=== PATIENT | male | born 1960 | race Caucasian/White ===

== ENCOUNTER 2022-02-13 08:34 | Day surgery (SDC) | payer OTHER ==
[~2022-02-13] VITALS: Ht 172.7 cm; Wt 178.2 kg
[~2022-02-13 08:34] MED LIST: ACET500; ASCO500; Multiple Vitam1 EAC1 PO; Naprosyn500 MG PO; Vitamin C60 MG
== END 2022-02-13 10:50 | disposition home or self-care (01) ==
LOC: ORSCSDS 08:34
PROVIDERS: Internal Medicine Gastroenterology
PROC: 0DBK8ZX Excision of Ascending Colon, Via Natural or Artificial Opening Endoscopic, Diagnostic (ICD-10-PCS; principal; 2022-02-13 09:45)
DX: Z12.11 Encounter for screening for malignant neoplasm of colon (principal); Z86.010 Personal history of colon polyps; Z80.0 Family history of malignant neoplasm of digestive organs; D12.2 Benign neoplasm of ascending colon; K57.30 Diverticulosis of large intestine without perforation or abscess without bleeding
CPT/HCPCS: 88305; J2704; J7120